=== PATIENT | male | born 1985 | race Two or more races ===

== ENCOUNTER 2019-01-10 15:51 | Inpatient (IN) | payer SELFPAY ==
[~2019-01-10] VITALS: Ht 165.1 cm; Wt 77.2 kg
[2019-01-10] MEDS ORDERED: SODIUM CHLORIDE 0.9% 1,000 ML IVB ONE (16:16)
[2019-01-10 16:41] LABS: Basophils # (auto) 0 uL; Basophils % (auto) 0.1 % (0.0-2.0); Eosinophils # (auto) 0 uL; Hematocrit 49.8 % (41.0-53.0); Hemoglobin 16.1 g/dL (13.5-17.5); Mean Corpuscular Hemoglobin 28.6 pg (28.0-32.0); Mean Corpuscular Hgb Conc. 32.3 g/dL (32.0-36.0); Mean Corpuscular Volume 88.5 fL (80.0-100.0); Monocytes # (auto) 0.9 uL; Monocytes % (auto) 4.5 % (0.0-12.0); Neutrophils # (auto) 17.8 uL; Neutrophils % (auto) 90.4 % (37.0-80.0); Platelet Count (auto) 341 10^3/uL (140-450); Red Blood Cells 5.63 10^6/uL (4.5-5.90); Red Cell Distribution Width 13.4 % (11.8-14.3); White Blood Cell 19.7 10^3/uL (4.4-10.8)
[2019-01-10 16:57] LABS: Prothrombin Time 10.7 sec (9.27-12.13)
[2019-01-10 17:02] LABS: Alanine Aminotransferase 17 U/L (16-61); Albumin 4.2 g/dL (3.4-5.0); Anion Gap 22 (5-15); Blood Urea Nitrogen 17 mg/dL (7-18); Calcium 9.7 mg/dL (8.5-10.1); Carbon Dioxide 12 mmol/L (21-32); Chloride 102 mmol/L (98-107); Glucose 381 mg/dL (74-106); Potassium 4.2 mmol/L (3.5-5.1); Sodium 136 mmol/L (136-145)
[2019-01-10 17:07] LABS: Alkaline Phosphatase 115 U/L (45-117); Aspartate Aminotransferase 8 U/L (15-37); BUN/Creatinine Ratio 14.9; Bilirubin, Total 0.6 mg/dL (0.2-1.0); GFR African American 94 mL/min; GFR Non-African American 78 mL/min; Total Protein 9.4 g/dL (6.4-8.2)
[2019-01-10] MEDS ORDERED: ONDANSETRON HCL 4 MG/2 ML VIAL ONE (17:14)
[2019-01-10] MEDS ORDERED: PANTOPRAZOLE 40 MG/10 ML VIAL IV ONE (17:15)
[2019-01-10] MEDS ORDERED: SODIUM CHLORIDE 0.9% 1,000 ML IV ONE (17:15)
[2019-01-10] MEDS ORDERED: ONDANSETRON HCL 4 MG/2 ML VIAL IV ONE ×2 (17:15)
[2019-01-10 18:08] LABS: Amylase 23 U/L (25-115); Lipase 53 U/L (73-393)
[2019-01-10] MEDS ORDERED: InsuLIN R (HUMAN) 100 UNITS in SODIUM CHL 0.9% 99 ML IV SCH (18:09)
[2019-01-10] MEDS ORDERED: DEXTROSE (50%) 50ML SYRG IV PRN (18:15)
[2019-01-10] MEDS: ACCU-CHEK COMFORT CURVE STRIP VI SCH ×3 (19:53→22:29)
[2019-01-10] MEDS: SODIUM CHLORIDE 0.9% 1,000 ML IV SCH ×2 (19:57→20:09)
[2019-01-10] MEDS ORDERED: PROMETHAZINE HCL 25 MG/ML 1ML IV ONE (20:30)
[2019-01-10 21:37] LABS: Urine Bacteria NONE SEEN /hpf (None Seen); Urine Blood Negative /uL (Negative); Urine Hyaline Cast FEW /lpf (0 - 2); Urine Specific Gravity 1.035 (1.001-1.035); Urine WBC 1 /hpf (0 - 3)
[2019-01-10] MEDS ORDERED: NITROGLYCERIN 0.4 MG SL TAB SL PRN (21:45)
[2019-01-10] MEDS ORDERED: MORPHINE SULFATE 4 MG/ML SYR/VIAL IV PRN (21:45)
[2019-01-10] MEDS ORDERED: ACETAMINOPHEN 325 MG TAB PO PRN (21:45)
[2019-01-10] MEDS ORDERED: TEMAZEPAM 15 MG CAP PO PRN (21:45)
[2019-01-10] MEDS ORDERED: SODIUM CHLORIDE 0.9% 1,000 ML IV SCH (22:09)
[2019-01-10] MEDS ORDERED: cefTRIAXone 1GM/50ML D5W 50 ML IV ONE (22:30)
[2019-01-11] MEDS: HYDROcodone-ACET 5/325MG TAB PO PRN (00:14)
[2019-01-11] MEDS: ACCU-CHEK COMFORT CURVE STRIP VI SCH ×10 (01:30→20:28)
[2019-01-11 01:52] LABS: BUN/Creatinine Ratio 16.9; Potassium 3.8 mmol/L (3.5-5.1)
[2019-01-11] MEDS: SODIUM CHLORIDE 0.9% 1,000 ML IV SCH (02:00)
[2019-01-11 05:34] LABS: Basophils # (auto) 0.1 uL; Basophils % (auto) 0.5 % (0.0-2.0); Eosinophils # (auto) 0 uL; Hematocrit 38.1 % (41.0-53.0); Hemoglobin 12.7 g/dL (13.5-17.5); Lymphocytes # (auto) 2.3 uL; Lymphocytes % (auto) 16.9 % (10.0-50.0); Mean Corpuscular Hemoglobin 29.2 pg (28.0-32.0); Mean Corpuscular Hgb Conc. 33.4 g/dL (32.0-36.0); Mean Corpuscular Volume 87.5 fL (80.0-100.0); Monocytes # (auto) 1.3 uL; Monocytes % (auto) 9.5 % (0.0-12.0); Neutrophils # (auto) 10.1 uL; Neutrophils % (auto) 73.1 % (37.0-80.0); Platelet Count (auto) 229 10^3/uL (140-450); Red Blood Cells 4.36 10^6/uL (4.5-5.90); Red Cell Distribution Width 13.5 % (11.8-14.3); White Blood Cell 13.9 10^3/uL (4.4-10.8)
[2019-01-11 05:51] LABS: Chloride 115 mmol/L (98-107); Potassium 3.4 mmol/L (3.5-5.1); Sodium 142 mmol/L (136-145)
[2019-01-11 06:02] LABS: Alanine Aminotransferase 9 U/L (16-61); Albumin 2.9 g/dL (3.4-5.0); Alkaline Phosphatase 72 U/L (45-117); Anion Gap 10 (5-15); Aspartate Aminotransferase 6 U/L (15-37); BUN/Creatinine Ratio 19.7; Bilirubin, Total 0.4 mg/dL (0.2-1.0); Blood Urea Nitrogen 12 mg/dL (7-18); Calcium 7.6 mg/dL (8.5-10.1); Carbon Dioxide 17 mmol/L (21-32); GFR African American 193 mL/min; GFR Non-African American 160 mL/min; Glucose 148 mg/dL (74-106); Total Protein 6.2 g/dL (6.4-8.2)
[2019-01-11] MEDS: D5W/SOD CHL 0.45% 1,000 ML IV SCH ×2 (07:28→15:40)
[2019-01-11] MEDS ORDERED: INSULIN LANTUS (GLARGINE) 1 /0.01ml (100units/ml) SC ONE (08:45)
[2019-01-11] MEDS ORDERED: InsuLIN R (HUMAN) 100 UNITS in SODIUM CHL 0.9% 99 ML IV SCH (09:00)
[2019-01-11] MEDS ORDERED: DEXTROSE (50%) 50ML SYRG IV PRN (09:15)
[2019-01-11] MEDS ORDERED: PANTOPRAZOLE 40 MG/10 ML VIAL IV SCH (10:30)
[2019-01-11] MEDS: ONDANSETRON HCL 4 MG/2 ML VIAL IV PRN ×2 (11:17→20:28)
[2019-01-11] MEDS: InsuLIN REG 1unit/0.01ml Soln (100units/ml) SC SCH ×3 (12:18→20:00)
[2019-01-11] MEDS: SOD CHL 0.45% WITH 20MEQ KCL 1,000 ML IV SCH (17:38)
[2019-01-11] MEDS: cefTRIAXone 1GM/50ML D5W 50 ML IV SCH (21:14)
[2019-01-11 21:34] LABS: BUN/Creatinine Ratio 9.6
[2019-01-11 21:35] VITALS: BP 139/76
[2019-01-11 21:40] VITALS: BP 139/76
--- NOTE | 2019-01-11 21:50 | NUR ---
PATIENT TRANSFERRED FROM ER PATIENT CAME FROM ER. HE IS A&OX4, IS AT BEDSIDE. BED IS AT LOWEST POSITION, CALL LIGHT IN REACH. NO S/S OF DISTRESS.
[2019-01-11] MEDS: INSULIN LANTUS (GLARGINE) 1 /0.01ml (100units/ml) SC SCH (22:43)
[2019-01-12] MEDS: ACCU-CHEK COMFORT CURVE STRIP VI SCH ×5 (01:04→22:32)
[2019-01-12] MEDS: InsuLIN REG 1unit/0.01ml Soln (100units/ml) SC SCH ×5 (01:04→22:31)
[2019-01-12] MEDS: SOD CHL 0.45% WITH 20MEQ KCL 1,000 ML IV SCH ×2 (04:38→21:33)
[2019-01-12 04:44] VITALS: BP 142/89
[2019-01-12] MEDS: ONDANSETRON HCL 4 MG/2 ML VIAL IV PRN (04:54)
[2019-01-12] MEDS ORDERED: DEXTROSE (50%) 50ML SYRG IV PRN (06:45)
[2019-01-12] MEDS: INSULIN LANTUS (GLARGINE) 1 /0.01ml (100units/ml) SC SCH ×2 (06:55→22:00)
--- NOTE | 2019-01-12 07:53 | NUR ---
OPENING SHIFT NOTE ASSUMED CARE OF PATIENT. PATIENT RESTING COMFORTABLY IN BED AT THIS TIME. NO S/S OF DISTRESS OR SOB NOTED. BED IN LOWEST LOCKED POSITION, CALL LIGHT WITHIN REACH. WILL CONTINUE TO MONITOR.
[2019-01-12 08:32] VITALS: BP 145/84
[2019-01-12 10:30] LABS: Basophils # (auto) 0.1 uL; Basophils % (auto) 0.7 % (0.0-2.0); Eosinophils # (auto) 0 uL; Eosinophils % (auto) 0.1 % (0.0-7.0); Hematocrit 40.4 % (41.0-53.0); Hemoglobin 14.1 g/dL (13.5-17.5); Lymphocytes # (auto) 2.6 uL; Lymphocytes % (auto) 23.4 % (10.0-50.0); Mean Corpuscular Hemoglobin 29.4 pg (28.0-32.0); Mean Corpuscular Hgb Conc. 34.8 g/dL (32.0-36.0); Mean Corpuscular Volume 84.4 fL (80.0-100.0); Monocytes # (auto) 0.8 uL; Monocytes % (auto) 7.5 % (0.0-12.0); Neutrophils # (auto) 7.4 uL; Neutrophils % (auto) 68.3 % (37.0-80.0); Nucleated Red Blood Cells % 0.1 %; Platelet Count (auto) 244 10^3/uL (140-450); Red Blood Cells 4.79 10^6/uL (4.5-5.90); Red Cell Distribution Width 13.1 % (11.8-14.3); White Blood Cell 10.9 10^3/uL (4.4-10.8)
[2019-01-12 10:57] LABS: Calcium 8.5 mg/dL (8.5-10.1); Magnesium 1.9 mg/dL (1.6-2.6); Phosphorus 2.3 mg/dL (2.5-4.90)
[2019-01-12] MEDS ORDERED: ALUM & MAG HYDROX-SIMETH LIQ(MAALOX) 30 ML PO PRN (11:00)
[2019-01-12] MEDS ORDERED: POTASSIUM PHOSPHATE 44 MEQ in D5W 5% 250 ML IV ONE (11:30)
[2019-01-12 13:27] VITALS: BP 153/88
[2019-01-12 17:00] VITALS: BP 142/82
--- NOTE | 2019-01-12 19:11 | NUR ---
RECEIVED PT FROM DAY RN POC REVIEWED
--- NOTE | 2019-01-12 19:30 | NUR ---
RECEIVED PT FROM DAY RN POC REVIEWED
--- NOTE | 2019-01-12 19:34 | NUR ---
END OF SHIFT NOTE PATIENT RESTING COMFORTABLY IN BED AT THIS TIME. NO S/S OF DISTRESS OR SOB NOTED. BED IN LOWEST LOCKED POSITION, CALL LIGHT WITHIN REACH. CARE ENDORSED TO NOC RN.
[2019-01-12] MEDS: cefTRIAXone 1GM/50ML D5W 50 ML IV SCH (21:32)
[2019-01-12 22:00] VITALS: BP 134/88
--- NOTE | 2019-01-12 22:25 | NUR ---
pt ambulated to bathroom hr 148 pt denies cp or discomfort
[2019-01-12] MEDS: PANTOPRAZOLE 40 MG TAB PO SCH (22:30)
[2019-01-13] MEDS: HYDROcodone-ACET 5/325MG TAB PO PRN (00:09)
--- NOTE | 2019-01-13 02:40 | NUR ---
resting with eyes closed call light within reach
[2019-01-13 05:23] VITALS: BP 125/73
[2019-01-13] MEDS: SOD CHL 0.45% WITH 20MEQ KCL 1,000 ML IV SCH (06:11)
[2019-01-13] MEDS: INSULIN LANTUS (GLARGINE) 1 /0.01ml (100units/ml) SC SCH (06:12)
[2019-01-13] MEDS: ACCU-CHEK COMFORT CURVE STRIP VI SCH (06:12)
[2019-01-13] MEDS: InsuLIN REG 1unit/0.01ml Soln (100units/ml) SC SCH (06:13)
--- NOTE | 2019-01-13 06:53 | NUR ---
REPORT GIVEN TO AM NURSE POC REVIEWED
[2019-01-13] MEDS ORDERED: METO25TA4 PO (09:43)
[2019-01-13] MEDS ORDERED: METF-370 PO (09:43)
[2019-01-13] MEDS ORDERED: GLIP-115 PO (09:43)
[2019-01-13] MEDS ORDERED: LISI2.5T47 PO (09:43)
[2019-01-13] MEDS ORDERED: PANT40T PO (09:43)
[2019-01-13] MEDS: PANTOPRAZOLE 40 MG TAB PO SCH (10:37)
[2019-01-13 11:15] VITALS: BP 148/95
--- NOTE | 2019-01-13 12:19 | NUR ---
Discharge instructions given as ordered. Encourage to follow up with PMD as instructed. All questions and concerns addressed. Patient verbalized understanding. Medication reconciliation form completed and copy given to patient.IV removed with catheter intact, pressure dressing applied. Telemetry unit returned to ICU. Patient taken to vehicle via wheelchair with all personal belongings, accompanied by staff and family member. No distress noted at time of departure.
== END 2019-01-13 12:19 | disposition home or self-care (01) | DRG 638 ==
LOC: ER 15:51 → TELE 21:39 → TELE-EAST 01-11 21:45
PROVIDERS: ADMIT Nurse Practitioner; ATTEND Internal Medicine
DX: E11.10 Type 2 diabetes mellitus with ketoacidosis without coma (principal); R65.10 Systemic inflammatory response syndrome (SIRS) of non-infectious origin without acute organ dysfunction; E86.0 Dehydration; I10 Essential (primary) hypertension; D72.829 Elevated white blood cell count, unspecified; E87.6 Hypokalemia; E83.39 Other disorders of phosphorus metabolism; K21.9 Gastro-esophageal reflux disease without esophagitis; Z82.49 Family history of ischemic heart disease and other diseases of the circulatory system; Z83.3 Family history of diabetes mellitus; Z91.14 Patient's other noncompliance with medication regimen; Z91.19 Patient's noncompliance with other medical treatment and regimen
CPT/HCPCS: 36415; 36600; 71045; 80048; 80053; 81001; 82010; 82150; 82805; 82962; 83036; 83690; 83735; 83930; 84100; 84443; 84484; 85025; 85610; 85730; 87040; 93005; 94761; 96361; 96365; 96375; 99291; C9113; G0378; J0696; J1815; J2405; J7060

== ENCOUNTER 2019-03-12 08:11 | Emergency (ER) | payer SELFPAY ==
[~2019-03-12] VITALS: Ht 165.1 cm; Wt 79.4 kg
[~2019-03-12 08:11] MED LIST: GLIP-115 PO; LISI2.5T47 PO; METF-370 PO; METO25TA4 PO; PANT40T PO
[2019-03-12] MEDS ORDERED: ONDANSETRON ODT 4 MG TAB PO ONE (08:30)
[2019-03-12 10:08] LABS: Albumin 4.2 g/dL (3.4-5.0); Calcium 9.1 mg/dL (8.5-10.1)
[2019-03-12 10:11] LABS: Basophils # (auto) 0 uL; Basophils % (auto) 0.5 % (0.0-2.0); Eosinophils # (auto) 0 uL; Eosinophils % (auto) 0.1 % (0.0-7.0); Hematocrit 48.9 % (41.0-53.0); Hemoglobin 16.4 g/dL (13.5-17.5); Lymphocytes # (auto) 2.2 uL; Lymphocytes % (auto) 25.2 % (10.0-50.0); Mean Corpuscular Hemoglobin 28.7 pg (28.0-32.0); Mean Corpuscular Hgb Conc. 33.6 g/dL (32.0-36.0); Mean Corpuscular Volume 85.5 fL (80.0-100.0); Monocytes # (auto) 0.6 uL; Monocytes % (auto) 6.9 % (0.0-12.0); Neutrophils % (auto) 67.3 % (37.0-80.0); Nucleated Red Blood Cells % 0.1 %; Platelet Count (auto) 323 10^3/uL (140-450); Red Blood Cells 5.73 10^6/uL (4.5-5.90); Red Cell Distribution Width 13.3 % (11.8-14.3); White Blood Cell 8.9 10^3/uL (4.4-10.8)
[2019-03-12 10:14] LABS: BUN/Creatinine Ratio 21.1; Total Protein 8.7 g/dL (6.4-8.2)
[2019-03-12] MEDS ORDERED: SODIUM CHLORIDE 0.9% 1,000 ML IV ONE ×4 (11:11→18:00)
[2019-03-12] MEDS ORDERED: ONDANSETRON HCL 4 MG/2 ML VIAL IV ONE (17:30)
[2019-03-12 19:41] VITALS: BP 157/94
== END 2019-03-12 21:28 | disposition home or self-care (01) ==
LOC: EDBD 08:11 → ER 08:11
DX: E11.65 Type 2 diabetes mellitus with hyperglycemia (principal); I10 Essential (primary) hypertension
CPT/HCPCS: 36415; 74176; 80053; 82962; 85025; 96361; 96374; 99284; J7030; Q0162

== ENCOUNTER 2022-08-06 09:47 | Inpatient (IN) | payer SELFPAY ==
[~2022-08-06] VITALS: Ht 165.1 cm; Wt 78.9 kg
[~2022-08-06 09:47] MED LIST changes: -GLIP-115 PO; +GLIP5TAB12 PO; +METO25TA36 PO; -METO25TA4 PO
[2022-08-06 10:20] LABS: Basophils # (auto) 0 10 ^3/uL (0-0.2); Basophils % (auto) 0.2 % (0.0-2.0); Eosinophils # (auto) 0 10 ^3/uL (0-0.8); Hematocrit 48.4 % (41.0-53.0); Hemoglobin 15.8 g/dL (13.5-17.5); Lymphocytes # (auto) 1.6 10 ^3/uL (0.4-5.4); Lymphocytes % (auto) 9.4 % (10.0-50.0); Mean Corpuscular Hemoglobin 28.3 pg (28.0-32.0); Mean Corpuscular Hgb Conc. 32.7 g/dL (32.0-36.0); Mean Corpuscular Volume 86.4 fL (80.0-100.0); Monocytes # (auto) 0.8 10 ^3/uL (0-1.3); Monocytes % (auto) 4.7 % (0.0-12.0); Neutrophils # (auto) 14.6 10 ^3/uL (1.6-8.6); Neutrophils % (auto) 85.7 % (37.0-80.0); Red Cell Distribution Width 13.4 % (11.8-14.3)
[2022-08-06 10:41] LABS: Potassium 4.7 mmol/L (3.5-5.1)
[2022-08-06 10:50] LABS: Albumin 4.2 g/dL (3.4-5.0); Bilirubin, Total 0.9 mg/dL (0.2-1.0); Calcium 9.6 mg/dL (8.5-10.1); Total Protein 8.7 g/dL (6.4-8.2)
[2022-08-06] MEDS ORDERED: DEXTROSE (50%) 50ML SYRG IV PRN (12:30)
[2022-08-06] MEDS ORDERED: INSULIN LANTUS (GLARGINE) 1 /0.01ml (100units/ml) SC ONE (12:30)
[2022-08-06] MEDS: ACCU-CHEK COMFORT CURVE STRIP VI SCH ×7 (14:00→22:35)
[2022-08-06] MEDS: InsuLIN R (HUMAN) 100 UNITS in SODIUM CHL 0.9% 99 ML IV SCH ×2 (14:03→15:14)
[2022-08-06 16:42] LABS: Alcohol, Urine < 3.0 mg/dL (0-10); Amphetamine Screen, Urine NEGATIVE (NEGATIVE); Barbiturate Scree,Urine NEGATIVE (NEGATIVE); Benzodiazephine Screen, Urine NEGATIVE (NEGATIVE); Cannabinoid Screen, Urine NEGATIVE (NEGATIVE); Cocaine Screen, Urine NEGATIVE (NEGATIVE); Opiate Scree,Urine NEGATIVE (NEGATIVE); Phencyclidine Screen, Urine NEGATIVE (NEGATIVE)
[2022-08-06] MEDS ORDERED: SODIUM CHLORIDE 0.9% 2,000 ML IV ONE (17:00)
[2022-08-06] MEDS ORDERED: NITROGLYCERIN 0.4 MG SL TAB SL PRN (17:00)
[2022-08-06] MEDS: SOD CHL 0.45% 1,000 ML IV SCH ×2 (17:00→20:00)
[2022-08-06] MEDS ORDERED: MORPHINE SULFATE INJ 2 MG/ml SYRG IV PRN ×2 (17:00)
[2022-08-06 19:02] LABS: Magnesium 2.4 mg/dL (1.6-2.6); Phosphorus 1.9 mg/dL (2.5-4.90)
[2022-08-06] MEDS: HEPARIN SODIUM (PORCINE) 5000 UNITS/ML 1ML VIAL SC SCH (22:10)
[2022-08-07] VITALS (10 sets, daily range): BP systolic 119–151; BP diastolic 66–98
[2022-08-07] MEDS: SOD CHL 0.45% 1,000 ML IV SCH ×3 (01:00→18:10)
[2022-08-07] MEDS: ACCU-CHEK COMFORT CURVE STRIP VI SCH ×11 (01:30→22:00)
[2022-08-07 01:37] LABS: Albumin 3.6 g/dL (3.4-5.0); BUN/Creatinine Ratio 26.1; Calcium 8.4 mg/dL (8.5-10.1); Potassium 3.9 mmol/L (3.5-5.1)
[2022-08-07 01:39] LABS: Bilirubin, Total 0.6 mg/dL (0.2-1.0); Total Protein 7.1 g/dL (6.4-8.2)
[2022-08-07 06:35] LABS: Basophils # (auto) 0 10 ^3/uL (0-0.2); Basophils % (auto) 0.3 % (0.0-2.0); Eosinophils # (auto) 0 10 ^3/uL (0-0.8); Hematocrit 42.3 % (41.0-53.0); Hemoglobin 13.7 g/dL (13.5-17.5); Lymphocytes % (auto) 14.3 % (10.0-50.0); Mean Corpuscular Hgb Conc. 32.5 g/dL (32.0-36.0); Mean Corpuscular Volume 86.1 fL (80.0-100.0); Monocytes % (auto) 7.1 % (0.0-12.0); Neutrophils # (auto) 10.8 10 ^3/uL (1.6-8.6); Neutrophils % (auto) 78.3 % (37.0-80.0); Nucleated Red Blood Cells % 0.1 %; Red Blood Cells 4.91 10^6/uL (4.5-5.90); Red Cell Distribution Width 13.6 % (11.8-14.3); White Blood Cell 13.9 10^3/uL (4.4-10.8)
[2022-08-07 06:51] LABS: Albumin 3.2 g/dL (3.4-5.0); Calcium 8.1 mg/dL (8.5-10.1); Magnesium 2.3 mg/dL (1.6-2.6); Potassium 3.8 mmol/L (3.5-5.1)
[2022-08-07 06:54] LABS: BUN/Creatinine Ratio 28.2; Bilirubin, Total 0.6 mg/dL (0.2-1.0); Phosphorus 1.6 mg/dL (2.5-4.90); Total Protein 6.7 g/dL (6.4-8.2)
[2022-08-07] MEDS: PANTOPRAZOLE 40 MG/10 ML VIAL INJ IV SCH (09:47)
[2022-08-07] MEDS: HEPARIN SODIUM (PORCINE) 5000 UNITS/ML 1ML VIAL SC SCH ×2 (09:48→22:00)
[2022-08-07] MEDS ORDERED: INSULIN LANTUS (GLARGINE) 1 /0.01ml (100units/ml) SC SCH (10:00)
[2022-08-07] MEDS ORDERED: SODIUM PHOSPHATES 20 MEQ in SODIUM CHL 0.9% 100 ML IV ONE (10:30)
[2022-08-07] MEDS ORDERED: DEXTROSE (50%) 50ML SYRG IV PRN (11:30)
[2022-08-07] MEDS: InsuLIN REG 1unit/0.01ml Soln (100units/ml) SC SCH ×3 (11:30→22:00)
[2022-08-08] MEDS: SOD CHL 0.45% 1,000 ML IV SCH ×2 (01:00→09:00)
[2022-08-08 06:13] VITALS: BP 130/75
[2022-08-08 06:14] LABS: Albumin 2.9 g/dL (3.4-5.0); Potassium 3.2 mmol/L (3.5-5.1)
[2022-08-08 06:18] LABS: BUN/Creatinine Ratio 16.4; Bilirubin, Total 0.7 mg/dL (0.2-1.0)
[2022-08-08] MEDS: InsuLIN REG 1unit/0.01ml Soln (100units/ml) SC SCH ×2 (06:27→12:12)
[2022-08-08] MEDS: ACCU-CHEK COMFORT CURVE STRIP VI SCH ×2 (06:27→12:00)
[2022-08-08] MEDS ORDERED: POTASSIUM CHL 20 Meq TABLET PO ONE (08:45)
[2022-08-08 09:00] VITALS: BP 141/89
[2022-08-08] MEDS: PANTOPRAZOLE 40 MG/10 ML VIAL INJ IV SCH (09:11)
[2022-08-08] MEDS: HEPARIN SODIUM (PORCINE) 5000 UNITS/ML 1ML VIAL SC SCH (09:11)
[2022-08-08 12:00] VITALS: BP 128/83
[2022-08-08 14:00] VITALS: BP 142/83
[2022-08-08 14:37] VITALS: BP 142/83
== END 2022-08-08 15:20 | disposition home or self-care (01) | DRG 70 ==
LOC: ER 09:47 → TELE 17:05 → DOU IN ICU 23:27
PROVIDERS: ADMIT Nurse Practitioner Acute Care; ATTEND Nurse Practitioner Acute Care
DX: G93.41 Metabolic encephalopathy (principal); E11.10 Type 2 diabetes mellitus with ketoacidosis without coma; R65.10 Systemic inflammatory response syndrome (SIRS) of non-infectious origin without acute organ dysfunction; Z20.822 Contact with and (suspected) exposure to COVID-19; I10 Essential (primary) hypertension; Z83.3 Family history of diabetes mellitus; Z91.19 Patient's noncompliance with other medical treatment and regimen; Z79.4 Long term (current) use of insulin
CPT/HCPCS: 36415; 36600; 80053; 80307; 82010; 82805; 82962; 83036; 83690; 83735; 84100; 85025; 87040; 87081; 96361; 96365; 96372; C9113; G0378; J1815